=== PATIENT | female | born 1975 | race Caucasian/White ===

== ENCOUNTER 2016-11-12 00:56 | Emergency (ER) | payer SELFPAY ==
[2016-11-12 00:56] VITALS: BMI 25.0
--- NOTE | 2016-11-12 01:13 | C.PDOC ---
History Of Present Illness Patient is presents to the ER with a complaint of a severe headache, vomiting and mild photophobia that began 3 days ago. Patient denies vision change, nausea , vomiting or trauma. Time Seen by Provider: 11/12/16 01:13 Chief Complaint (Nursing): Headache History Per: Patient History/Exam Limitations: no limitations Onset/Duration Of Symptoms: Days (3) Current Symptoms Are (Timing): Still Present Severity: Mild Pain Scale Rating Of: 4 Preceeding Symptoms: None Associated Symptoms: Photophobia (Mild). denies: Blurred Vision, Nausea, Vomiting Recent travel outside of the [place]: No Past Medical History Reviewed: Historical Data, Nursing Documentation, Vital Signs Vital Signs: Last Vital Signs Temp 98.0 F 11/12/16 03:45 Pulse 88 11/12/16 03:45 Resp 16 11/12/16 03:45 BP 134/76 11/12/16 03:45 Pulse Ox 99 11/12/16 03:45 - Medical History PMH: Anemia, Arthritis, Diabetes, Gastritis Surgical History: Appendectomy, Cholecystectomy - [facility] Procedures REPAIR OF HAMMER TOE (03/14/14) Family History: States: No Known Family Hx - Social History Hx Tobacco Use: No Hx Alcohol Use: No Hx Substance Use: No - Immunization History Hx Tetanus Toxoid Vaccination: No Hx Influenza Vaccination: No Hx Pneumococcal Vaccination: No Review Of Systems Eyes: Negative for: Vision Change Cardiovascular: Negative for: Chest Pain Respiratory: Negative for: Shortness of Breath Gastrointestinal: Negative for: Nausea, Vomiting Genitourinary: Negative for: Dysuria Musculoskeletal: Negative for: Back Pain Skin: Negative for: Rash, Lesions, Jaundice Neurological: Positive for: Headache (Severe), Other (Mild photophobia) Psych: Positive for: Anxiety Physical Exam - Physical Exam Appears: Non-toxic Skin: Warm, Dry Head: Atraumatic, Normacephalic Eye(s): bilateral: Normal Inspection, PERRL, EOMI Oral Mucosa: Moist Neck: Supple Chest: Symmetrical, No Tenderness Cardiovascular: Rhythm Regular, No Murmur Respiratory: No Rales, No Rhonchi, No Wheezing Gastrointestinal/Abdominal: Soft, No Tenderness Extremity: Normal ROM Neurological/Psych: Oriented x3, Normal Speech, Normal Cognition Gait: Steady ED Course And Treatment - Laboratory Results Result Diagrams: 11/12/16 01:30 11/12/16 01:30 O2 Sat by Pulse Oximetry: 96 (Room air) Pulse Ox Interpretation: Normal Progress Note: Head CT w/o contrast and urinalysis ordered. Solu-medrol, morphine and zofran administered. Reevaluation Time: 04:39 Reassessment Condition: Improved Medical Decision Making Medical Decision Making: Upon provider reevaluation patient is feeling better, is medically stable, and requires no further treatment in the ED at this time. Patient will be discharged home with Rx for motrin and zofran. Counseling was provided and all questions were answered regarding diagnosis and need for follow up with dr avendano. There is agreement to discharge plan. Return if symptoms persist or worsen. Disposition Counseled Patient/Family Regarding: Studies Performed, Diagnosis, Need For Followup, Rx Given - Disposition Referrals: Nancy Avendano MD [Non-Staff] - Disposition: HOME/ ROUTINE Disposition Time: 01:13 Condition: FAIR Prescriptions: Ibuprofen [Motrin] 600 mg PO TID #15 tab Ondansetron ODT [Zofran ODT] 4 mg PO TID #10 odt Instructions: Migraine Headache (ED) Print Language: YEMENI - Clinical Impression Clinical Impression: Migraine - Scribe Statement The provider has reviewed the documentation as recorded by the Scribe Ernie Walker All medical record entries made by the Scribe were at my direction and personally dictated by me. I have reviewed the chart and agree that the record accurately reflects my personal performance of the history, physical exam, medical decision making, and the department course for this patient. I have also personally directed, reviewed, and agree with the discharge instructions and disposition.
[2016-11-12 01:33] LABS: BASO # 0.1 K/uL (0.0-0.2); EOS # 1.4 K/uL (0.0-0.7); EOS % 14.1 % (0.0-4.0); HEMATOCRIT 33.8 % (34.0-47.0); LYMPH # 2.5 K/uL (1.0-4.3); LYMPH % 26.4 % (20.0-40.0); MEAN CELL VOLUME 77.7 fL (81.0-99.0); MEAN CORPUSCULAR HEMOGLOBIN 24.5 pg (27.0-31.0); MEAN CORPUSCULAR HGB CONC 31.5 g/dL (33.0-37.0); MEAN PLATELET VOLUME 11.4 fL (7.2-11.7); MONO # 0.7 K/uL (0.0-0.8); MONO % 7.2 % (0.0-10.0); RED CELL DISTRIBUTION WIDTH 17.3 % (11.5-14.5); WHITE BLOOD COUNT 9.6 K/uL (4.8-10.8)
[2016-11-12 01:40] LABS: CHLORIDE 100 mmol/L (98-107)
[2016-11-12 01:41] LABS: POTASSIUM 3.8 mmol/L (3.6-5.2); SODIUM 136 mmol/L (132-148)
[2016-11-12 01:43] LABS: BILIRUBIN,TOTAL 0.4 mg/dL (0.2-1.3); CARBON DIOXIDE 27 mmol/L (22-30); GFR AFRICAN-AMERICAN > 60
[2016-11-12 01:44] LABS: ALB/GLOB RATIO 1.2 (1.0-2.1); ALKALINE PHOSPHATASE 84 U/L (38-126); ALT/SGPT 20 U/L (9-52); AST/SGOT 13 U/L (14-36); BLOOD UREA NITROGEN 13 mg/dL (7-17); CALCIUM 8.6 mg/dl (8.6-10.4); GLUCOSE,RANDOM 251 mg/dL (65-105); TOTAL PROTEIN 7.5 g/dL (6.3-8.3)
[2016-11-12 04:09] VITALS: PULSE 88; RESP 16; TEMP 98
[2016-11-12 05:12] VITALS: BP 128/76; O2SAT 97
--- NOTE | 2016-11-12 10:46 | CT ---
PROCEDURE: CT HEAD WITHOUT CONTRAST. HISTORY: Headache COMPARISON: None available. TECHNIQUE: Axial computed tomography images were obtained through the head/brain without intravenous contrast. Radiation dose: Total exam DLP = 833.48 mGy-cm. This CT exam was performed using one or more of the following dose reduction techniques: Automated exposure control, adjustment of the mA and/or kV according to patient size, and/or use of iterative reconstruction technique. FINDINGS: HEMORRHAGE: No intracranial hemorrhage. BRAIN: No evidence of large acute infarct. Note that CT imaging may not visualize hyperacute small infarcts. No obvious parenchymal nor extra-axial mass or collection. VENTRICLES: Mass or Unremarkable. No hydrocephalus. CALVARIUM: Unremarkable. PARANASAL SINUSES: Unremarkable as visualized. No significant inflammatory changes. MASTOID AIR CELLS: Unremarkable as visualized. No inflammatory changes. OTHER FINDINGS: None. IMPRESSION: No acute intracranial hemorrhage. Followup studies such as MRI could be performed if clinically indicated
== END 2016-11-12 05:10 | disposition home or self-care (01) ==
LOC: C.ER 00:56
DX: G43.909 Migraine, unspecified, not intractable, without status migrainosus (principal)
CPT/HCPCS: 70450; 80053; 85025; 96374; 96375; 99285; J2270; J2405; J2930

== ENCOUNTER 2016-12-02 11:57 | Emergency (ER) | payer OTHER ==
[2016-12-02 11:57] VITALS: BMI 25.0
[2016-12-02 12:08] VITALS: PULSE 69; RESP 18; TEMP 97.9
--- NOTE | 2016-12-02 12:32 | C.PDOC ---
History Of Present Illness 41 y/o female presents to the ED with complaints of suprapubic pain x1 week with urinary frequency. Pt also reports constipation intermittently x2 weeks, and noticed a painful lump on her anus. Pt denies dysuria, itching, blood streaked stool, nausea, vomiting or any other complaints. Time Seen by Provider: 12/02/16 12:09 Chief Complaint (Nursing): Female Genitourinary History Per: Patient History/Exam Limitations: no limitations Onset/Duration Of Symptoms: Days, Intermittent Episodes Current Symptoms Are (Timing): Still Present Severity: Moderate Recent travel outside of the [place]: No Past Medical History Reviewed: Historical Data, Nursing Documentation, Vital Signs Vital Signs: Last Vital Signs Temp 97.9 F 12/02/16 12:06 Pulse 69 12/02/16 14:10 Resp 18 12/02/16 14:10 BP 126/75 12/02/16 14:10 Pulse Ox 98 12/02/16 14:10 - Medical History PMH: Anemia, Arthritis, Diabetes, Gastritis Surgical History: Appendectomy, Cholecystectomy - [facility] Procedures REPAIR OF HAMMER TOE (03/14/14) Family History: States: Unknown Family Hx - Social History Hx Tobacco Use: No Hx Alcohol Use: No Hx Substance Use: No - Immunization History Hx Tetanus Toxoid Vaccination: No Hx Influenza Vaccination: No Hx Pneumococcal Vaccination: No Review Of Systems Constitutional: Negative for: Fever, Chills Gastrointestinal: Positive for: Abdominal Pain, Constipation, Rectal Pain. Negative for: Nausea, Vomiting, Hematochezia Genitourinary: Positive for: Frequency. Negative for: Dysuria Physical Exam - Physical Exam Appears: Non-toxic, No Acute Distress Skin: Warm, Dry, No Diaphoretic, No Rash Head: Atraumatic, Normacephalic Eye(s): bilateral: Normal Inspection Neck: Normal ROM Chest: Symmetrical, No Tenderness Cardiovascular: Rhythm Regular, No Murmur Respiratory: Normal Breath Sounds, No Rales, No Rhonchi, No Wheezing Gastrointestinal/Abdominal: Soft, Tenderness (mild suprapubic), No Guarding, No Rebound Rectal: Rectal Tone (normal), No Blood Streaked Stool, Hemorrhoids (external nonthrombosed), No Tenderness Back: No CVA Tenderness Extremity: Bilateral: Atraumatic, Normal Color And Temperature, Normal ROM Neurological/Psych: Oriented x3, Normal Speech Gait: Steady ED Course And Treatment O2 Sat by Pulse Oximetry: 100 (room air) Pulse Ox Interpretation: Normal Medical Decision Making Medical Decision Making: Impression: lower abd pain and hemorrhoids Plan: * tylenol * UA Progress: UA was negative Patient remained well and in no acute distress. Explain UA results and pain likely from constipation and hemorrhoid. Patient feeling better and comfortable going home. Will give Rx and have patient follow up in the clinic Disposition - Disposition Referrals: [facility] [Outside] [facility] [Outside] Disposition: HOME/ ROUTINE Disposition Time: 14:00 Condition: GOOD Additional Instructions: Vaya a lara mdico o la clnica en 2-5 matthews sin falta, para mas evaluacin. [place] los medicamentos david indicado. Volver a la hemant de emergencia en cualquier momento si los sntomas persisten o empeoran. Prescriptions: Docusate Sodium [Colace] 100 mg PO TID #30 capsule Hydrocortisone 2.5% (Rectal) [Anusol-HC] 30 applic TN BID #1 tube Instructions: Hemorrhoids (ED), High Fiber Diet (ED) Print Language: BANGLADESHI - POA Present On Arrival: None - Clinical Impression Clinical Impression: Constipation, Hemorrhoid - PA / [employer] / Resident Statement MD/DO has reviewed & agrees with the documentation as recorded. - Scribe Statement The provider has reviewed the documentation as recorded by the Nmia Avina All medical record entries made by the Scribe were at my direction and personally dictated by me. I have reviewed the chart and agree that the record accurately reflects my personal performance of the history, physical exam, medical decision making, and the department course for this patient. I have also personally directed, reviewed, and agree with the discharge instructions and disposition.
[2016-12-02 13:00] LABS: RBC URINE 20 /hpf (0-3); URINE BACTERIA RARE (<OCC); URINE BILIRUBIN NEGATIVE (NEGATIVE); URINE BLOOD 3+ (NEGATIVE); URINE COLOR Yellow (YELLOW); URINE GLUCOSE (UA) 3+ mg/dL (Normal); URINE KETONE NEGATIVE (NEGATIVE); URINE LEUKOCYTE ESTERASE NEG Leu/uL (Negative); URINE PROTEIN NEGATIVE (NEGATIVE); URINE UROBILINOGEN NORMAL mg/dL (0.2-1.0); WBC URINE 3 /hpf (0-5)
[2016-12-02 14:10] VITALS: BP 126/75
[2016-12-02 16:09] VITALS: O2SAT 100
== END 2016-12-02 14:11 | disposition home or self-care (01) ==
LOC: C.ER 11:57
DX: K59.00 Constipation, unspecified (principal); K64.9 Unspecified hemorrhoids; E11.9 Type 2 diabetes mellitus without complications